=== PATIENT | female | born 1995 | race Caucasian/White ===

== ENCOUNTER 2016-11-28 21:50 | Emergency (ER) | payer SELFPAY ==
[~2016-11-28] VITALS: Ht 152.4 cm; Wt 65.8 kg
[~2016-11-28 21:50] MED LIST: BACTRIM DS TAB1 EAC1 ORAL; BACTRIM-DS1 EA ORAL; KEFLEX500 MG ORAL
--- NOTE | 2016-11-28 22:19 | Emergency Room Report ---
History of Present Illness General Chief Complaint: Skin Rash/Abscess Source: Patient Present Illness HPI Patient present with complaints of swelling and discomfort to the lower back she reports that is the same as the pilonidal cyst that she had last time She feels that area has become more red and tender she reports having a procedure was found to be incision and drainage here last year however has not followed up with anyone since Patient had low-grade fever denies any chest pain or shortness of breath denies any neuropathy pain is 6/10 worse with touch Allergies: Coded Allergies: No Known Allergies (Unverified , 11/28/16) Patient History Past Medical History: see triage record Pertinent Family History: none Last Menstrual Period: now Now: No Reviewed Nursing Documentation: PMH: Agreed, PSxH: Agreed Nursing Documentation-PMH Past Medical History: No History, Except For Review of Systems All Other Systems: negative except mentioned in HPI Physical Exam Vital Signs Date Time Temp Pulse Resp B/P Pulse Ox O2 Delivery O2 Flow Rate FiO2 11/28/16 22:00 99.1 123 16 116/67 99 Room Air Sp02 EP Interpretation: reviewed, normal General Appearance: well appearing, no apparent distress Head: normocephalic, atraumatic Eyes: bilateral eye EOMI, bilateral eye PERRL ENT: normal pharynx, no angioedema Neck: supple, thyroid normal Respiratory: lungs clear, normal breath sounds Cardiovascular #1: regular rate, rhythm, no edema Gastrointestinal: non tender, soft, no mass Rectal: other - Evidence of pilonidal cyst /abscess area of approximately 1 x 1 cm fluctuance, no obvious spread to the perirectal area Musculoskeletal: normal inspection Neurologic: alert, oriented x3, responsive Skin: other - As above Lymphatic: no adenopathy Procedures Incision and Drainage Incision and Drainage : Consent: Verbal Site: Lower back Blade Size: 11 I & D Procedure: betadine prep, sterile drapes applied, sterile dressing applied, gauze wick placed Wound Location: back Wound's Depth, Shape: into muscle Irrigated w/ Saline (ccs): 200 Anesthesia: 1% Lidocaine Volume Anesthetic (ccs): 5 Splint Applied?: No Patient Tolerated: Well Complications: None Progress The area in the lower back was cleansed and prepped Half centimeter puncture wound, was made for incision, several areas of pockets of pus opened with forceps, after this he had copious amounts of discharge from the area, packing was performed Medical Decision Making Diagnostic Impression: Primary Impression: Pilonidal abscess ER Course Please refer to the note for the residual incision and drainage The area is concerning given the amount of pus In the location I did have a discussion with the patient regarding the need for close specialty followup This area will have repeat presentations and can have concerning outcomes patient placed on oral antibiotics and requires close outpatient followup Please note that initially the patient was somewhat tachycardic, the heart rate has appropriately decreased throughout her stay Patient also had temperature of 99 Last Vital Signs Date Time Temp Pulse Resp B/P Pulse Ox O2 Delivery O2 Flow Rate FiO2 11/28/16 22:00 99.1 123 16 116/67 99 Room Air Status: improved Disposition: HOME, SELF-CARE Condition: Improved Scripts Trimethoprim/Sulfamethoxazole 160/800* (BACTRIM DS TABLET*) 1 Each Tablet 1 TAB ORAL Q12H, #20 TAB 0 Refills Prov: ISA CAMPOVERDE D.O. 11/28/16 Acetaminophen With Codeine (T#3) (TYLENOL #3 TAB*) Y Tab 1 TAB ORAL Q8H Y for For Pain, #12 TAB Prov: ISA CAMPOVERDEO. 11/28/16 Ibuprofen* (MOTRIN*) 600 Mg Tablet 600 MG ORAL Q8H Y for For Pain, #30 TAB 0 Refills Prov: ISA CAMPOVERDE.O. 11/28/16 Cephalexin* (KEFLEX*) 500 Mg Capsule 500 MG ORAL Q6H, #40 CAP 0 Refills Prov: ISA CAMPOVERDEO. 11/28/16 Additional Instructions: Patient is provided with the discharge instructions notified to follow up with primary doctor in the next 2-3 days otherwise return to the er with any worsening symptoms. Please note that this report is being documented using [employer] software technology. This can lead to erroneous entry secondary to incorrect interpretation by the dictating instrument. ISA CAMPOVERDE D.O. November 28, 2016 22:19
[2016-11-28] MEDS ORDERED: Lidocaine 1% 10mg/ml/Epi 0.005mg/ml 30ml vial INJ ONE (22:30)
[2016-11-28] MEDS ORDERED: IBUPROFEN600 MG ORAL (23:25)
[2016-11-28] MEDS ORDERED: KEFLEX500 MG ORAL (23:25)
[2016-11-28] MEDS ORDERED: BACTRIM DS TAB1 EAC1 ORAL (23:25)
[2016-11-28] MEDS ORDERED: ACETAMINOPHEN-1 EAC1 ORAL (23:25)
[2016-11-28] MEDS ORDERED: Cephalexin 500mg cap ORAL ONE (23:30)
[2016-11-28 23:45] VITALS: BP 116/67
== END 2016-11-28 23:56 | disposition home or self-care (01) ==
LOC: EMR 22:16
DX: L05.01 Pilonidal cyst with abscess (principal)
CPT/HCPCS: 10060

== ENCOUNTER 2018-02-20 21:45 | Emergency (ER) | payer BC, MEDICAID ==
[~2018-02-20] VITALS: Ht 152.4 cm; Wt 65.8 kg
[~2018-02-20 21:45] MED LIST changes: +ACETAMINOPHEN-1 EAC1 ORAL; +IBUPROFEN600 MG ORAL
[2018-02-20 21:49] VITALS: BP 121/73
[2018-02-20] MEDS ORDERED: NKM (21:52)
[2018-02-20 22:08] LABS: APPEARANCE,URINE SLIGHTLY CLOUDY; BILIRUBIN, URINE NEGATIVE (NEGATIVE); COLOR,URINE PALE YELLOW; GLUCOSE, URINE (UA) NEGATIVE (NEGATIVE); KETONES,URINE 1+ (NEGATIVE); LEUKOCYTE ESTERASE ,URINE 2+ (NEGATIVE); NITRITE,URINE NEGATIVE (NEGATIVE); PH,URINE 6 (4.5-8.0); PROTEIN,URINE 1+ (NEGATIVE); UROBILINOGEN,URINE NORMAL MG/DL (0.0-1.0)
[2018-02-20] MEDS ORDERED: CEPHALEXIN500 MG ORAL (22:43)
[2018-02-20 22:46] VITALS: BP 121/73
--- NOTE | 2018-02-21 00:37 | Emergency Room Report ---
History of Present Illness General Chief Complaint: Female Urogenital Problems Source: Medical Record Present Illness HPI 22-year-old female presents ED complaining of dysuria 1 day. Patient states she is approximately 1 month . States this feels a UTI. Denies fevers or chills. Denies flank pain. Denies vaginal bleeding or discharge. Denies any abdominal pain. No other aggravating relieving factors. Denies any other associated symptoms Allergies: Coded Allergies: No Known Allergies (Unverified , 11/28/16) Patient History Past Medical History: none Past Surgical History: none Pertinent Family History: none Social History: Denies: smoking, alcohol use, drug use Last Menstrual Period: 01/04/18 Now: Yes : 2 Para: 1 Immunizations: UTD Reviewed Nursing Documentation: PMH: Agreed; PSxH: Agreed Review of Systems All Other Systems: negative except mentioned in HPI Physical Exam Vital Signs Date Time Temp Pulse Resp B/P (MAP) Pulse Ox O2 Delivery O2 Flow Rate FiO2 02/20/18 21:49 98.3 77 14 121/73 100 Room Air 98.2 Sp02 EP Interpretation: reviewed, normal General Appearance: no apparent distress, alert, GCS 15, non-toxic Head: normocephalic, atraumatic Eyes: bilateral eye normal inspection, bilateral eye PERRL ENT: hearing grossly normal, normal pharynx, no angioedema, normal voice Neck: full range of motion, supple/symm/no masses Respiratory: chest non-tender, lungs clear, normal breath sounds, speaking full sentences Cardiovascular #1: regular rate, rhythm, no edema Cardiovascular #2: 2+ carotid (R), 2+ carotid (L), 2+ radial (R), 2+ radial (L) , 2+ dorsalis pedis (R), 2+ dorsalis pedis (L) Gastrointestinal: normal bowel sounds, non tender, soft, non-distended, no guarding, no rebound Rectal: deferred Genitourinary: normal inspection, no CVA tenderness Musculoskeletal: back normal, gait/station normal, normal range of motion, non- tender Neurologic: alert, oriented x3, responsive, motor strength/tone normal, sensory intact, speech normal Psychiatric: judgement/insight normal, memory normal, mood/affect normal, no suicidal/homicidal ideation Reflexes: 3+ bicep (R), 3+ bicep (L), 3+ tricep (R), 3+ tricep (L), 3+ knee (R) , 3+ knee (L) Skin: normal color, no rash, warm/dry, well hydrated Lymphatic: no adenopathy Medical Decision Making Diagnostic Impression: Primary Impression: UTI (urinary tract infection) Qualified Codes: N39.0 - Urinary tract infection, site not specified Additional Impression: Qualified Codes: Z3A.01 - Less than 8 weeks gestation of ER Course Hospital Course 22-year-old female presents to ED complaining of dysuria Differential diagnoses include: UTI, cystitis, pyelonephritis Clinical course Patient placed on stretcher. After initial history and physical I ordered UA, urine . UA positive bacteria, urine positive. We'll treat with antibiotics discussed findings with patient. Patient not having any abdominal pain, no cramping or discharge or bleeding. No indication for ultrasound at this time. Patient states she has care Diagnosis - UTI, Stable and discharged home with prescriptions for Rx Keflex. Instructed to followup with OBGYN. Return to ED if symptoms recur or worsen Labs Test 02/20/18 21:55 Urine Color Pale yellow Urine Appearance Slightly cloudy Urine pH 6 (4.5-8.0) Urine Specific [place] 1.020 (1.005-1.035) Urine Protein 1+ (NEGATIVE) Urine Glucose (UA) Negative (NEGATIVE) Urine Ketones 1+ (NEGATIVE) Urine Occult Blood 2+ (NEGATIVE) Urine Nitrite Negative (NEGATIVE) Urine Bilirubin Negative (NEGATIVE) Urine Urobilinogen Normal MG/DL (0.0-1.0) Urine Leukocyte Esterase 2+ (NEGATIVE) Urine RBC 0-2 /HPF (0 - 2) Urine WBC 10-15 /HPF (0 - 2) Urine Squamous Epithelial Cells Many /LPF (NONE/OCC) Urine Bacteria Moderate /HPF (NONE) Urine HCG, Qualitative Positive (NEGATIVE) Last Vital Signs Date Time Temp Pulse Resp B/P (MAP) Pulse Ox O2 Delivery O2 Flow Rate FiO2 02/20/18 22:46 98.3 14 121/73 100 Room Air 98.2 02/20/18 21:49 77 Status: improved Disposition: HOME, SELF-CARE Condition: Stable Scripts Cephalexin* (KEFLEX*) 500 Mg Capsule 500 MG ORAL EVERY 6 HOURS for 7 Days, CAP Prov: Miguel Angel Baird MD 02/20/18 Referrals: NOT CHOSEN IPA/,REFERRING (PCP) Patient Instructions: Urinary Tract Infection Miguel Angel Baird MD Feb 21, 2018 00:37
== END 2018-02-20 22:46 | disposition home or self-care (01) ==
LOC: EMR 22:10
DX: O23.41 Unspecified infection of urinary tract in pregnancy, first trimester (principal); Z3A.01 Less than 8 weeks gestation of pregnancy
CPT/HCPCS: 81003; 81025; 87086; 99283

== ENCOUNTER 2019-04-25 14:23 | Emergency (ER) | payer MEDICAID, OTHER ==
[~2019-04-25] VITALS: Ht 170.2 cm; Wt 72.6 kg
[~2019-04-25 14:23] MED LIST changes: +CEPHALEXIN500 MG ORAL; +NKM
[2019-04-25 15:00] VITALS: BP 118/74
--- NOTE | 2019-04-25 15:00 | NUR ---
ED Nurse Note: Pt aaox4, vss witn no signs of acute distress. Pt came in due to possible cyst on her tailbone. Pt c/o back pain whenever she sits down.
[2019-04-25] MEDS ORDERED: Lidocaine 2% 20mg/ml/EPI 0.01mg/ml 20ml INJ ONE (15:15)
--- NOTE | 2019-04-25 15:17 | Emergency Room Report ---
History of Present Illness General Chief Complaint: Back Pain-No Injury Source: Patient Present Illness HPI 24 YO Female presents to the ED c/o 11/29 in severity pain, swelling, and erythema of the upper left side of the gluteal cleft, progressive. Denies fevers or chills. Denies BRBPR, Constipation or rectal pain. Pt. reports hx of Pilonidal abscess in same area on two previous occasions. Pt. reports pain exacerbated with sitting or palpation. She denies trauma or fall. No other aggravating or relieving factors at this time. Allergies: Coded Allergies: No Known Allergies (Unverified , 11/28/16) Patient History Past Medical History: see triage record Past Surgical History: none Pertinent Family History: none Last Menstrual Period: 04/01/19 Now: No Reviewed Nursing Documentation: PMH: Agreed; PSxH: Agreed Nursing Documentation-PMH Past Medical History: No History, Except For Review of Systems All Other Systems: negative except mentioned in HPI Physical Exam Vital Signs Date Time Temp Pulse Resp B/P (MAP) Pulse Ox O2 Delivery O2 Flow Rate FiO2 04/25/19 14:44 98.4 77 17 118/74 (89) 97 Room Air Sp02 EP Interpretation: reviewed, normal General Appearance: alert, GCS 15, non-toxic, mild distress Head: normocephalic, atraumatic Eyes: bilateral eye normal inspection, bilateral eye PERRL ENT: hearing grossly normal, normal voice Neck: full range of motion Respiratory: lungs clear, normal breath sounds, speaking full sentences Cardiovascular #1: regular rate, rhythm Gastrointestinal: non tender, soft Rectal: deferred, other - no obvious perirectal spreak/involvement. There is swelling, erythema, induration and some palpable fluctuance at the left side of the gluteal cleft. Musculoskeletal: back normal, gait/station normal, normal range of motion, non- tender Neurologic: alert, oriented x3, responsive, motor strength/tone normal, sensory intact, speech normal, grossly normal Psychiatric: judgement/insight normal Skin: other - no obvious perirectal spreak/involvement. There is swelling, erythema, induration and some palpable fluctuance at the left side of the gluteal cleft. Lymphatic: no adenopathy Procedures Incision and Drainage Incision and Drainage : Consent: Verbal Site: Gluteal cleft: pilonida abscess Blade Size: 11 I & D Procedure: betadine prep, sterile drapes applied, sterile dressing applied Wound Location: other - gluteal cleft Wound's Depth, Shape: into muscle Wound Length (cm): 1 Wound Explored: contaminated Irrigated w/ Saline (ccs): 200 Anesthesia: Lidocaine w/ Epi Volume Anesthetic (ccs): 2 Splint Applied?: No Sling Applied?: No Patient Tolerated: Well Complications: None Medical Decision Making PA Attestation Dr. Choe is my supervising Physician whom patient management has been discussed with. Diagnostic Impression: Primary Impression: Pilonidal abscess ER Course 24 YO Female presents to the ED c/o 11/29 in severity pain, swelling, and erythema of the upper left side of the gluteal cleft, progressive. Denies fevers or chills. Denies BRBPR, Constipation or rectal pain. Pt. reports hx of Pilonidal abscess in same area on two previous occasions. Pt. reports pain exacerbated with sitting or palpation. She denies trauma or fall. No other aggravating or relieving factors at this time. Ddx considered but are not limited to cellulitis, abscess, sulema-rectal abscess, hemorrhoid just to name a few. . Vital signs: are WNL, pt. is afebrile H&PE are most consistent with infected pilonidal abscess. - small amount of fluctuance noted. ORDERS: pain med ED INTERVENTIONS: -I & D D/w Pt. that follow up is a must, this is her 3rd presentation for pilonidal abscess and each time she has been non-compliant with follow up instructions. D/ w pt. that her symptoms will return intermittently until she has definitive treatment as outpatient surgical procedure. -I do not identify an emergent condition at this time. With current presentation , pt. is stable for close outpatient follow up and conservative treatment. D/ w pt. to return promptly to ED with worsening or new symptoms.- Pt. verbalizes ' understanding and agreement with proposed treatment plan.proposed treatment plan. DISCHARGE: At this time pt. is stable for d/c to home. Will provide printed patient care instructions, and any necessary prescriptions. Care plan and follow up instructions have been discussed with the patient prior to discharge. Last Vital Signs Date Time Temp Pulse Resp B/P (MAP) Pulse Ox O2 Delivery O2 Flow Rate FiO2 04/25/19 15:00 98.4 67 17 118/74 97 Room Air Disposition: HOME, SELF-CARE Condition: Stable Scripts Ibuprofen* (MOTRIN*) 600 Mg Tablet 600 MG ORAL THREE TIMES A DAY, #30 TAB 0 Refills Prov: Rosa Melendez 04/25/19 Cephalexin* (KEFLEX*) 500 Mg Capsule 500 MG ORAL EVERY 12 HOURS for 7 Days, #14 CAP 0 Refills Prov: Rosa Melendez 04/25/19 Trimethoprim/Sulfamethoxazole 160/800* (BACTRIM DS TABLET*) 1 Each Tablet 1 TAB ORAL TWICE A DAY for 7 Days, #14 TAB Prov: Rosa Melendez 04/25/19 Referrals: NON PHYSICIAN (PCP) Patient Instructions: Incision and Drainage of a Pilonidal Cyst, Care After, Pilonidal Cyst Additional Instructions: Take medications as directed. Follow up with a Primary Care Provider in 3-5 days, even if your symptoms have resolved. Return sooner to ED if new symptoms occur, or current symptoms become worse. - Please note that this Emergency Department Report was dictated using [employer] on man technology software, occasionally this can lead to erroneous entry secondary to interpretation by the dictation equipment. Rosa Melendez Apr 25, 2019 15:17
[2019-04-25] MEDS ORDERED: IBUPROFEN600 MG ORAL (15:22)
[2019-04-25] MEDS ORDERED: CEPHALEXIN500 MG ORAL (15:22)
[2019-04-25] MEDS ORDERED: BACTRIM DS TAB1 EAC1 ORAL (15:22)
--- NOTE | 2019-04-25 15:40 | NUR ---
ED Nurse Note: Informed consent obtained by Timoteo Lee and patient signed consent for Incision and drainage of pilonidal cyst abscess. Patient states all questions were answered.
[2019-04-25 15:47] VITALS: BP 118/74
--- NOTE | 2019-04-25 15:47 | NUR ---
ER DISCHARGE NOTE: Patient is cleared to be discharged per ERMD, pt is aox4, on room air, with stable vital signs. pt was given dc and prescription instructions, pt was able to verbalize understanding, pt id band and iv site removed without complications. pt is able to ambulate with steady gait. pt took all belongings. Pt states pain is 1/10.
== END 2019-04-25 15:47 | disposition home or self-care (01) ==
LOC: EMR 15:04
DX: L05.01 Pilonidal cyst with abscess (principal)
CPT/HCPCS: 10060; Z7502; 99282